=== PATIENT | female | born 1965 | race Caucasian/White ===

== ENCOUNTER 2017-03-04 06:10 | Emergency (ER) | payer OTHER ==
[~2017-03-04] VITALS: Ht 165.1 cm; Wt 74.1 kg
[2017-03-04 06:15] VITALS: BP 107/44
[2017-03-04] MEDS ORDERED: AZIT250T PO (06:36)
--- NOTE | 2017-03-04 06:36 | PHYS DOC ---
Adult General Chief Complaint Chief Complaint: congestion HPI HPI Patient is a 51-year-old female who is in good general health, presents to the ED with greater than 1 week of head congestion which has now moved into her chest for about 3 days. Her throat is raw. She has green stuff coming out of her nose. She has lost her voice. She has a little bit of a cough. She feels like it started as a head cold and then went into her chest, but she feels like she has a sinus infection. She's had a lot of sinus infections. She has been using [id number] symptom relievers including ibuprofen, Sudafed, and nasal decongestant spray, and Neti pot. She feels like she is getting worse instead of better. She has to fly on Monday. Patient is on no chronic medications, just daily vitamins. PCP Dr. Zhao on post. Review of Systems Review of Systems Constitutional: Has had fever and chills HENT: As in history of present illness Respiratory: She has a cough that is not bothering her too much. She had checked in with "trouble breathing" but the details on that is that she can't breathe through her nose and has trouble breathing because of head congestion. Physical Exam Physical Exam Constitutional: Well developed, well nourished, no acute distress, non-toxic appearance. Alert, mentating normally, occasional cough, very congested, no dyspnea HENT: Normocephalic, atraumatic, bilateral external ears normal, bilateral TMs clear and normal, oropharynx moist, no oral exudates, no pharyngeal erythema, tonsils not visualized, nose normal. [] Eyes: conjunctiva normal, no discharge. [] Neck: Normal range of motion, no stridor. [] Cardiovascular:Heart rate regular rhythm, no murmur [] Lungs & Thorax: Bilateral breath sounds clear to auscultation, good air movement throughout, no wheezes, normal lung exam. Skin: Warm, dry, no erythema, no rash. [] Extremities: No tenderness, no cyanosis, no clubbing, ROM intact, no edema. [] Neurologic: Alert and oriented X 3, normal motor function, no focal deficits noted. [] EKG EKG [] Radiology/Procedures Radiology/Procedures [] Course & Med Decision Making Course & Med Decision Making Pertinent Labs and Imaging studies reviewed. (See chart for details) 51-year-old healthy female presents with greater than 1 week of head congestion , green nasal discharge, sore throat, now feels like it's "going into her chest ". She has to fly in 2 days. She believe she has a sinus infection. I discussed with her that there is a good chance that her symptoms are still viral but since they are not improving after more than a week and happy to prescribe an antibiotic. She is allergic to Augmentin which gives her a rash. We agreed on a Z-Puma which has worked for her before. [] Dragon Disclaimer Dragon Disclaimer This chart was dictated in whole or in part using Voice Recognition software in a busy, high-work load, and often noisy Emergency Department environment. It may contain unintended and wholly unrecognized errors or omissions. Departure Departure: Impression: Primary Impression: Sinusitis Additional Impression: Viral upper respiratory illness Disposition: 01 HOME, SELF-CARE Condition: STABLE Referrals: KIERAN ZHAO (PCP) Patient Instructions: Sinusitis, [id number], Upper Respiratory Infection, Adult, [id number] Additional Instructions: Ibuprofen for pain including throat pain. Cough lozenges or cough suppressant such as dextromethorphan as needed. [id number]-drp-[id number] decongestant such as Sudafed and/or spray such as [place]- Synephrine or Afrin. Plenty of fluids. As we discussed, we will treat you with an antibiotic since this has been going on for more than a week and you have a history of sinus infections. Still, there is likely at least a viral component. Good handwashing. Plenty of rest. Scripts Azithromycin (ZITHROMAX) 250 Mg Tablet 1 PKG PO UD for respiratory infection, sinusit, #6 TAB Prov: JULIO HUNG MD 03/04/17 Problem Qualifiers JULIO HUNG MD Mar 04, 2017 06:36
== END 2017-03-04 06:44 | disposition home or self-care (01) ==
LOC: ER 06:10
DX: J32.9 Chronic sinusitis, unspecified (principal); J06.9 Acute upper respiratory infection, unspecified
CPT/HCPCS: 99283